=== PATIENT | male | born 1965 | race American Indian/Alaskan Native ===

== ENCOUNTER 2021-01-28 01:49 | Emergency (ER) | payer MEDICAID ==
[2021-01-28 03:44] VITALS: BP 116/74
--- NOTE | 2021-01-28 04:59 | Emergency Department Report ---
ED General Adult HPI - General Chief complaint: Abdominal Pain Stated complaint: RECTAL/ABDOMINAL PAIN Source: patient Mode of arrival: Ambulatory Limitations: No Limitations - History of Present Illness Initial comments: Patient is a 55-year-old -[place] male with no past medical history presents to the ED with complaint of acute onset rectal pain after having a bowel movement which she describes as "hard stool" with bowel movement intermittently for the last 2 days, worse in the last 6 hours. Patient states that about 6 hours ago, after having a bowel movement the rectal pain got worse. Patient admits to having hard stools with bowel movement. Patient states that upon arrival in the ED, rectal pain resolved but he still wanted to be evaluated for any hemorrhoids. Patient denies testicular pain, fever, chills, diarrhea, dysuria, urinary frequency and urgency, hematuria, abdominal pain, hematemesis, hematochezia, chest pain, low back pain or shortness of breath. MD Complaint: rectal pain with bowel movement -: Sudden, days(s) (2) Location: buttocks (rectal pain) Radiation: non-radiation Severity scale (0 -10): 0 Quality: dull Consistency: intermittent, now resolved Improves with: none Worsens with: none Associated Symptoms: denies other symptoms. denies: confusion, chest pain, cough, diaphoresis, fever/chills, headaches, loss of appetite, malaise, rash, seizure, shortness of breath, syncope, weakness Treatments Prior to Arrival: none - Related Data Previous Rx's Medication Instructions Recorded Last Taken Type Docusate Sodium [Dok] 100 mg PO Q12H #60 tablet 01/28/21 Unknown Rx Allergies Allergy/AdvReac Type Severity Reaction Status Date / Time gi cocktail Allergy Itching Uncoded 01/28/21 02:39 ED Review of Systems ROS: Stated complaint: RECTAL/ABDOMINAL PAIN Other details as noted in HPI Constitutional: denies: chills, fever Eyes: denies: eye pain, eye discharge, vision change ENT: denies: ear pain, throat pain Respiratory: denies: cough, shortness of breath, wheezing Cardiovascular: denies: chest pain, palpitations Endocrine: no symptoms reported Gastrointestinal: constipation, other (rectal pain). denies: abdominal pain, nausea, diarrhea Genitourinary: denies: urgency, dysuria Musculoskeletal: denies: back pain, joint swelling, arthralgia Skin: denies: rash, lesions Neurological: denies: headache, weakness, paresthesias Psychiatric: denies: anxiety, depression Hematological/Lymphatic: denies: easy bleeding, easy bruising ED Past Medical Hx - Past Medical History Previous Medical History?: No - Surgical History Past Surgical History?: No - Social History Smoking Status: Never Smoker Substance Use Type: None - Medications Home Medications: Home Medications Medication Instructions Recorded Confirmed Last Taken Type Docusate Sodium [Dok] 100 mg PO Q12H #60 tablet 01/28/21 Unknown Rx ED Physical Exam - General Limitations: No Limitations General appearance: alert, in no apparent distress - Head Head exam: Present: atraumatic, normocephalic, normal inspection - Eye Eye exam: Present: normal appearance, PERRL, EOMI Pupils: Present: normal accommodation - ENT ENT exam: Present: normal exam, normal orophraynx, mucous membranes moist, TM's normal bilaterally, normal external ear exam - Neck Neck exam: Present: normal inspection, full ROM - Respiratory Respiratory exam: Present: normal lung sounds bilaterally. Absent: respiratory distress, wheezes, rales, rhonchi, stridor, chest wall tenderness, accessory muscle use, decreased breath sounds, prolonged expiratory - Cardiovascular Cardiovascular Exam: Present: regular rate, normal rhythm, normal heart sounds. Absent: systolic murmur, diastolic murmur, rubs, gallop - GI/Abdominal GI/Abdominal exam: Present: soft, normal bowel sounds. 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 Absent: bloody stool, fecal impaction, hemorrhoids, tenderness - Extremities Exam Extremities exam: Present: normal inspection, full ROM, normal capillary refill - Back Exam Back exam: Present: normal inspection, full ROM. Absent: tenderness, CVA tenderness (R), muscle spasm, paraspinal tenderness, vertebral tenderness - Neurological Exam Neurological exam: Present: alert, oriented X3, CN II-XII intact, normal gait, reflexes normal - Psychiatric Psychiatric exam: Present: normal affect, normal mood, anxious - Skin Skin exam: Present: warm, dry, intact, normal color. Absent: rash ED Course Vital Signs 01/28/21 02:34 Temperature 98.3 F Pulse Rate 90 Respiratory 18 Rate Blood Pressure 116/74 O2 Sat by Pulse 95 Oximetry ED Medical Decision Making - Medical Decision Making This is a 55-year-old -[place] male with no past medical history presents to the ED with complaint of acute onset rectal pain after having a bowel movement which she describes as "hard stool" with bowel movement intermittently for the last 2 days, worse in the last 6 hours. Patient states that about 6 hours ago, after having a bowel movement the rectal pain got worse. Patient admits to having hard stools with bowel movement. Patient states that upon arrival in the ED, rectal pain resolved but he still wanted to be evaluated for any hemorrhoids. In the ED, patient is alert and oriented x3 and is not in any distress. Patient is hemodynamically stable, pleasant and fully interactive during the physical exam. The physical exam is also unremarkable with no blood or hemorrhoids and tenderness in the rectal vault. Patient declined any lab tests, urinalysis or any other test, stating that his pain resolved prior to arrival in the ED. Patient was therefore discharged from the ED and given a prescription of stool softeners to be taken as needed, and also given a referral to GI physician Dr. Tasha Talbert further evaluation. Patient was also advised to follow-up with his primary care physician in 3 to 5 days for reevaluation or return to the ED immediately if symptoms get worse. - Differential Diagnosis Hemorrhoids; rectal abscess; constipation; anal fissure; anal tear Critical care attestation.: If time is entered above; I have spent that time in minutes in the direct care of this critically ill patient, excluding procedure time. ED Disposition Clinical Impression: Anal or rectal pain Constipation Qualifiers: Constipation type: other constipation type Qualified Code(s): K59.09 - Other constipation Disposition: DC-01 TO HOME OR SELFCARE Is pt being admited?: No Does the pt Need Aspirin: No Condition: Stable Instructions: Constipation, Adult, [id number] Additional Instructions: Follow-up with the GI physician Dr. Tasha Talbert in 3 to 5 days for reevaluation and for possible colonoscopy. Follow-up with your primary care physician in 3 to 5 days for reevaluation or return to the ED immediately if symptoms get worse. Prescriptions: Docusate Sodium [Dok] 100 mg PO Q12H #60 tablet Referrals: [facility] [Provider Group] - 3-5 Days TASHA TALBERT MD [Staff Physician] - 3-5 Days Time of Disposition: 04:58 Print Language: LEBANESE
== END 2021-01-28 05:15 | disposition home or self-care (01) ==
LOC: ED 01:49
DX: K59.00 Constipation, unspecified (principal); K62.89 Other specified diseases of anus and rectum; Z79.899 Other long term (current) drug therapy; Z88.8 Allergy status to other drugs, medicaments and biological substances
CPT/HCPCS: 99282